=== PATIENT | male | born 1970 | race Two or more races ===

== ENCOUNTER 2022-05-17 13:34 | Emergency (ER) | payer SELFPAY ==
[~2022-05-17] VITALS: Ht 182.9 cm; Wt 109.0 kg
[2022-05-17] MEDS ORDERED: AZIT500T66 PO (15:58)
[2022-05-17] MEDS ORDERED: IBUP800T27 PO (15:58)
[2022-05-17 16:04] VITALS: BP 132/69
== END 2022-05-17 16:08 | disposition home or self-care (01) ==
LOC: ER 13:34
DX: J03.90 Acute tonsillitis, unspecified (principal)

== ENCOUNTER 2022-05-24 19:16 | Emergency (ER) | payer SELFPAY ==
[~2022-05-24] VITALS: Ht 182.9 cm; Wt 111.9 kg
[~2022-05-24 19:16] MED LIST: AZIT500T66 PO; IBUP800T27 PO
[2022-05-24] MEDS ORDERED: IBUP800T26 PO (21:04)
[2022-05-24] MEDS ORDERED: LORA-664 PO (21:04)
[2022-05-24] MEDS ORDERED: BENZ100C19 PO (21:04)
[2022-05-24 21:28] VITALS: BP 125/86
== END 2022-05-24 21:28 | disposition home or self-care (01) ==
LOC: ER 19:16
DX: U07.1 COVID-19 (principal); Z79.1 Long term (current) use of non-steroidal anti-inflammatories (NSAID); Z79.2 Long term (current) use of antibiotics
CPT/HCPCS: 36415; 87070; 87426; 87880